=== PATIENT | male | born 1975 | race Hispanic/Latino ===

== ENCOUNTER 2023-10-29 05:30 | Day surgery (SDC) | payer OTHER ==
--- NOTE | 2023-10-26 15:05 | NUR ---
PHONE CALL TO PT HE DID NOT ANSWER HIS PHONE LEFT MESSAGE AND NUMBER TO CALL BACK TO COM[PLETE PRE ADMIT.
[~2023-10-29] VITALS: Ht 170.2 cm; Wt 79.5 kg
[~2023-10-29 05:30] MED LIST: LEVOTHYROXINE137 MC1 PO
[2023-10-29 06:09] VITALS: BP 114/66
--- NOTE | 2023-10-29 07:31 | NUR ---
ROUNDS. PT GONE FOR PROCEDURE. PROVIDED PRAYER.
[2023-10-29] MEDS ORDERED: DICLOFENAC SODI75 MG PO (07:38)
[2023-10-29] MEDS ORDERED: HYDROCODON-ACE1 EA10 PO (07:38)
--- NOTE | 2023-10-29 07:47 | NUR ---
10/29/23 0747 Sheets,Jeanne 0737 PT ARRIVED TO PACU ON 6L VIA MASK, PT ASLEEP WITH ORAL AIRWAY IN PLACE. RESP EVEN AND UNLABORED. 0739 PT STARTS SCRATCHING HIS FACE AND ORAL AIRWAY REMOVED. PT OPENED HIS EYE AND IS REORIENTED TO PACU. PT EASILY FALLS BACK TO SLEEP. 0740 O2 MASK REMOVED, PT GRABBING AND MOVED HIS MASK.
[2023-10-29 08:02] VITALS: BP 115/66
--- NOTE | 2023-10-29 08:08 | NUR ---
PT ARRIVES BACK TO DAY SURGERY. PT ANSWERS QUESTIONS APPROPRIATELY. CLOSES EYES WHEN NOT BEING TALKED TO. RESP EVEN AND UNLABORED. OXYGEN SAT HIGH 90'S ON RA. PT PROVIDED COFFEE, WATER, AND JELL-O PER HIS REQUEST. PT'S CONTACTED AND UPDATED. BED IN THE LOWEST POSITION, BED RAIL UP X1, CALL LIGHT PROVIDED.
--- NOTE | 2023-10-29 08:49 | NUR ---
PT REPORTS HIS LEFT KNEE PAIN IS "IMPROVING", RATING IT A 3/10. PT STATES HE IS READY TO AMBULATE AND USE THE RESTROOM. PT SITTING UP ON THE EDGE OF THE BED REPORTS NO DIZZINESS OR NAUSEA. PT ABLE TO AMBULATE TO THE RESTROOM WITH SBA. TOLERATED WELL.
[2023-10-29 09:00] VITALS: BP 128/79
--- NOTE | 2023-10-29 09:22 | NUR ---
0854- PT AMBULATED BACK TO HIS ROOM. PT REPORTS HIS LEFT KNEE PAIN IS A 4/10, STATES THIS IS TOLERABLE FOR HIM AND IS READY TO GO HOME. PT GETTING DRESSED WITH HIS AT BEDSIDE. TOLERATING WELL. 0901- INTO PT'S ROOM TO GO OVER DC INSTRUCTIONS. DC INSTRUCTIONS PROVIDED TO PT AND PT'S . ALL QUESTIONS ANSWERED. NEW ICE PACK PROVIDED, COFFEE, AND WATER REFILLED. 0910- PT TAKEN TO THE FRONT OF THE HOSPITAL AND ASSISTED INTO THE PASSENGER SIDE OF THE VEHICLE. PT AND PT'S THANKFUL FOR THE CARE.
--- NOTE | 2023-10-29 10:24 | OR ---
[facility] [address], [place] [address] Signed DATE OF OPERATION: 10/29/2023 SURGEON: Bess Bateman MD PREOPERATIVE DIAGNOSIS: Medial meniscus tear, left knee. POSTOPERATIVE DIAGNOSIS: Medial meniscus tear, left knee. PROCEDURE PERFORMED: Left knee arthroscopy with partial medial meniscectomy. COMPENSATION/BENEFITS SPECIALIST: None. ANESTHESIA: General. BLOOD LOSS: Minimal. BRIEF HISTORY: Dakota is a 48-year-old gentleman with a painful unstable knee. MRI was consistent with a large posteromedial meniscus tear. Risks and benefits of operative treatment were discussed with him and he elected to proceed. Once consent was obtained, he was taken to the operating room. After adequate anesthesia, he was placed on the operating room table. All downside pressure points were well padded. The right leg was flexed, abducted and externally rotated in well-padded leg barrios. The left was placed in well-padded leg barrios with no tourniquet. The leg was then prepped and draped in the standard sterile fashion. The portal sites were injected with 0.25% Marcaine with epinephrine. Standard inferolateral and superolateral portals were made and the scope was introduced into the knee. ARTHROSCOPIC FINDINGS: The patella was intact with good centering. 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 Medial and lateral gutters were clear. ACL and PCL were intact. Lateral compartment was intact. Medial compartment showed minimal grade 1 softening. There was a large complex tear from the mid posterior body extending to the mid medial body. Electronically Signed By: BESS BATEMAN MD 10/29/23 1024 PATIENT NAME: DAKOTA BENSON OPERATIVE REPORT DATE OF : 75 REPORT #: [id number] PHYSICIAN: BESS BATEMAN MD PCP: UNASSIGNED DOCTOR REPORT IS CONFIDENTIAL AND NOT TO BE RELEASED WITHOUT AUTHORIZATION [facility] [address], [place] [address] Signed DESCRIPTION OF OPERATION: Standard diagnostic arthroscopy was undertaken with findings as above. Standard inferomedial portal was made and the straight and curved biters were used to trim the meniscus tear back to a stable rim. This was then smoothed using a shaver and feathered out anteriorly and posteriorly. All debris was evacuated as we went. The scope was then withdrawn. Portals were closed with 3-0 nylon and the knee was injected with 60 mg of Toradol at the end of the case. The wound was dressed with Adaptic, ABD and Chavez wrap. He tolerated the procedure well. All sponge, needle, and instrument counts were correct. Bess Bateman MD BA/MARINA /[id number] Copies: ~ Electronically Signed By: BESS BATEMAN MD 10/29/23 1024 PATIENT NAME: DAKOTA BENSON OPERATIVE REPORT DATE OF : 75 REPORT #: [id number] PHYSICIAN: BESS BATEMAN MD PCP: UNASSIGNED DOCTOR REPORT IS CONFIDENTIAL AND NOT TO BE RELEASED WITHOUT AUTHORIZATION
== END 2023-10-29 09:10 | disposition home or self-care (01) ==
LOC: DS 05:30
PROVIDERS: ATTEND Specialist
PROC: 0SBD4ZZ Excision of Left Knee Joint, Percutaneous Endoscopic Approach (ICD-10-PCS; principal; 2023-10-29 07:00)
DX: S83.232A Complex tear of medial meniscus, current injury, left knee, initial encounter (principal); M94.262 Chondromalacia, left knee; X58.XXXA Exposure to other specified factors, initial encounter
CPT/HCPCS: 01400; J0131; J0690; J1100; J1885; J2001; J2405; J2704; J3010; J7121